=== PATIENT | male | born 1965 | race Caucasian/White ===

== ENCOUNTER → 2016-10-06 | Outpatient (CLI) | payer OTHER ==
--- NOTE | 2016-10-06 14:29 | DIAGNOSTIC IMAGING REPORT ---
LEFT KNEE 4 VIEWS CLINICAL HISTORY: Left knee pain. FINDINGS: AP, crosstable lateral, tunnel, and sunrise views of the left knee are compared to study dated 04/21/2016. The skeletal structures appear osteopenic. No fracture is identified. There is a minimally minimal degenerative narrowing in the medial and lateral compartments. There is persistent superior subluxation of the patella. Large inferior patellar enthesophytes are identified. There is no evidence of osteochondral defect on the tunnel image. There is no significant joint effusion. There is marked prepatellar and pretibial soft tissue edema. No foci of subcutaneous gas are identified. IMPRESSION: 1. Generalized osteopenia with no acute bony abnormality identified in the left knee. 2. 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 3. There is marked pretibial and patellar soft tissue edema. Electronically signed by: David Veiyra M.D. 10/06/2016 2:27 PM Dictated Date/Time: 10/06/2016 2:25 PM
== END | disposition home or self-care (01) ==
LOC: C.RDSM 14:07
PROVIDERS: ATTEND Physician Assistant
DX: R52 Pain, unspecified (principal)